=== PATIENT | female | born 1990 | race Caucasian/White ===

== ENCOUNTER 2019-07-08 19:18 | Outpatient (CLI) | payer MEDICAID | END 2019-07-08 19:19 | disposition short-term general hospital (02) | LOC: EMS 19:18 | PROVIDERS: ATTEND Surgery | DX: S01.01XA Laceration without foreign body of scalp, initial encounter (principal); V49.40XA Driver injured in collision with unspecified motor vehicles in traffic accident, initial encounter; Y92.410 Unspecified street and highway as the place of occurrence of the external cause | CPT/HCPCS: A0425; A0429; A0999 ==

== ENCOUNTER 2021-07-22 10:17 | Outpatient (CLI) | payer MEDICAID | END 2021-07-22 10:18 | disposition short-term general hospital (02) | LOC: EMS 10:17 | DX: M62.838 Other muscle spasm (principal); E23.2 Diabetes insipidus; U07.1 COVID-19 | CPT/HCPCS: A0425; A0429; A0999 ==

== ENCOUNTER 2021-07-23 03:48 | Outpatient (CLI) | payer MEDICAID | END 2021-07-23 03:49 | disposition short-term general hospital (02) | LOC: EMS 03:48 | DX: R07.89 Other chest pain (principal); R11.2 Nausea with vomiting, unspecified; R19.7 Diarrhea, unspecified; U07.1 COVID-19 | CPT/HCPCS: A0425; A0429; A0999 ==

== ENCOUNTER 2021-08-18 16:09 | Outpatient (CLI) | payer MEDICAID | END 2021-08-18 16:10 | disposition short-term general hospital (02) | LOC: EMS 16:09 | DX: R53.81 Other malaise (principal); R11.0 Nausea | CPT/HCPCS: A0425; A0427; A0999 ==

== ENCOUNTER 2022-08-08 12:25 | Emergency (ER) | payer MEDICAID ==
[2022-08-08 12:40] VITALS: BP 124/72
[2022-08-08] MEDS ORDERED: IBUPROFEN 800 MG TABLET PO STA (13:42)
[2022-08-08] MEDS ORDERED: oxyCODONE 5 MG TABLET PO STA (13:42)
[2022-08-08] MEDS ORDERED: PENICILLIN VK 250 MG TABLET PO STA (13:42)
--- NOTE | 2022-08-08 13:43 | ED Physician Documentation ---
PD HPI HEENT - Stated complaint Stated Complaint: FACIAL SWELLING - Chief complaint Chief Complaint: Heent - History obtained from History obtained from: Patient - Additional information Additional information: 32-year-old woman with history of fentanyl and methamphetamine abuse presents with her mother for the evaluation of facial swelling and a dental infection going on for about 2 days and generally worsening not associated with fevers or chills. Is been a long time since she saw a dentist but has an upcoming appointment. She is weaned herself off of Suboxone and is staying with her mother. Last use of fentanyl was approximately 3 weeks ago and last use of methamphetamines was approximately a week ago. 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 : None HEENT: None Psych: Depression, Anxiety Musculoskeletal: None Derm: None - Past Surgical History Past Surgical History: No /CAR SUPERVISOR: Tubal ligation - Present Medications Home Medications: Ambulatory Orders Medication Instructions Recorded Confirmed Fluconazole [Diflucan] 100 mg PO ONCE #1 tablet 02/27/16 Hydrocodone/Acetaminophen [[place] 1 each PO Q6H PRN #15 tablet 02/27/16 5-325 Tablet] Ibuprofen [Motrin] 600 mg PO TID #20 tab 02/27/16 metroNIDAZOLE [Flagyl] 500 mg PO BID #14 tablet 02/27/16 Ibuprofen [Motrin] 800 mg PO Q8H PRN #30 tablet 08/08/22 Oxycodone HCl/Acetaminophen 1 - 2 each PO Q6H PRN #14 tablet 08/08/22 [Percocet 5-325 mg Tablet] Penicillin V Potassium 500 mg PO Q6HR #40 tablet 08/08/22 - Allergies Allergies/Adverse Reactions: Allergies Allergy/AdvReac Type Severity Reaction Status Date / Time No Known Drug Allergies Allergy Verified 08/08/22 12:38 - Social History Does the pt smoke?: No Smoking Status: Never smoker Does the pt drink ETOH?: No Does the pt have substance abuse?: Yes - Immunizations Immunizations are current?: Yes - POLST Patient has POLST: No PD ED PE NORMAL - Vitals Vital signs reviewed: Yes - General General: Alert and oriented X 3, No acute distress - HEENT HEENT: Other (There is a large cavity in the left maxillary molar with overlying facial swelling but no palpable abscess on the buccal side at this juncture. No trismus.) - Neck Neck: Supple, no meningeal sign, No bony TTP - Neuro Neuro: Alert and oriented X 3, Normal speech - Psych Psych: Normal mood, Normal affect Results - Vitals Vitals: Vital Signs - 24 hr 08/08/22 12:35 Temperature 36.6 C Heart Rate 98 Respiratory 14 Rate Blood Pressure 124/72 O2 Saturation 99 Oxygen O2 Source Room air PD MEDICAL DECISION MAKING - ED course ED course: Discussed with her that she does not have a palpable abscess that we can drain at this juncture but she may progress to doing so and she should return if she feels more of a lump or worsens. Otherwise she will follow-up with a dentist as soon as possible. She is at high risk for substance abuse having had a history of same but needs something for pain and is here with mom and mom will hold the prescription for narcotics. Departure - Departure Disposition: 01 Home, Self Care Clinical Impression: Dental abscess Condition: Good Record reviewed to determine appropriate education?: Yes Instructions: ED Abscess Dental Prescriptions: Penicillin V Potassium 500 mg PO Q6HR #40 tablet Ibuprofen [Motrin] 800 mg PO Q8H PRN #30 tablet PRN Reason: PAIN &/OR FEVER Oxycodone HCl/Acetaminophen [Percocet 5-325 mg Tablet] 1 - 2 each PO Q6H PRN #14 tablet PRN Reason: pain Comments: As discussed, I sent your prescriptions electronically to [facility] in [place] is that these the only pharmacy that we know of that is currently open in the area. Mom should hold prescription for narcotics given history of substance issues. It is very important that you follow-up with a dentist. When it comes to dental problems like yours, the emergency department can only offer a short-term solution to your long-term problem. A couple of low cost options for dental care include: [facility] in [place], calls [phone] for an appointment Or [facility] in [place], call [phone] for an appointment. I am prescribing a short course of narcotic pain medication for you. These are potentially dangerous and addictive medications that should be used carefully. These medications may constipate you. Take an avig-zyp-ayfxfat stool softener (docusate) twice daily with plenty of water while taking these medications. If you go 24 hours without a bowel movement, take [id number] miralax, per package instructions. Do not drink or drive while taking these medications. If you received narcotic or sedating medications while in the emergency department, do not drive for 24 hours. Store this medication in a safe, secure place and out of reach of children. It is a violation of federal law to give or sell this medication to another person or to use in a manner other than prescribed. The ED will not refill narcotic prescriptions, including prescriptions lost or stolen. To dispose of unwanted medications: 1. [facility] at [address] in [place] has a medication drop box. They accept prescription medications (in pill form) Friday through Friday 9:00 a.m. to 5:00 p.m. 2. [facility] accepts prescription medications (in pill form only) for disposal year round. Call for more information. 3. Contact the [facility] for the next [facility] sponsored prescription drug collection event. , x7310, or x7310; Note that many narcotic pain relievers also contain Tylenol/acetaminophen. Ple ase ensure that your total dose of acetaminophen from all sources does not exceed 3 g (3000 mg) per day.
== END 2022-08-08 14:01 | disposition home or self-care (01) ==
LOC: ED 12:25
DX: K04.7 Periapical abscess without sinus (principal)
CPT/HCPCS: 99282; 99283; A9270

== ENCOUNTER 2023-05-26 14:43 | Emergency (ER) | payer MEDICAID ==
[2023-05-26 14:50] VITALS: BP 128/63; O2SAT 100
--- NOTE | 2023-05-26 16:47 | ED Physician Documentation ---
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: Tubal ligation - Present Medications Home Medications: Ambulatory Orders Medication Instructions Recorded Confirmed No Known Home Medications 05/26/23 05/26/23 - Allergies Allergies/Adverse Reactions: Allergies Allergy/AdvReac Type Severity Reaction Status Date / Time No Known Drug Allergies Allergy Verified 05/26/23 14:47 - Social History Does the pt smoke?: No Smoking Status: Never smoker Does the pt drink ETOH?: No Does the pt have substance abuse?: Yes - Immunizations Immunizations are current?: Yes - POLST Patient has POLST: No Results - Vitals Vitals: Vital Signs - 24 hr 05/26/23 14:44 Temperature 36.8 C Heart Rate 78 Respiratory 16 Rate Blood Pressure 128/63 O2 Saturation 100 Oxygen O2 Source Room air Departure - Departure
== END 2023-05-26 18:25 | disposition left against medical advice (07) ==
LOC: ED 14:43
DX: Z53.21 Procedure and treatment not carried out due to patient leaving prior to being seen by health care provider (principal)

== ENCOUNTER 2023-05-28 18:01 | Emergency (ER) | payer MEDICAID ==
[2023-05-28 18:07] VITALS: BP 140/75; O2SAT 99
--- NOTE | 2023-05-28 18:46 | ED Physician Documentation ---
History of Present Illness - Stated complaint Stated Complaint: MOUTH SWELLING - Chief complaint Chief Complaint: Heent - Additonal information Additional information: 33-year-old female presents emergency department for evaluation of 1 week pain at tooth #6. She does have a decayed tooth here and has been seen by [facility] with a plan to have the tooth removed and get partials/dentures. However she was referred to an outside dentist and is unsure when this will occur. She does smoke/vape daily. No fevers. No trismus. Tolerating her oral secretions. 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: No Does the pt have substance abuse?: Yes - Immunizations Immunizations are current?: Yes - POLST Patient has POLST: No PD ED PE NORMAL - General General: Alert and oriented X 3, No acute distress - HEENT HEENT: Pharynx benign, Other (Tooth #6 is decayed at the gumline without gumline swelling erythema or drainage. No trismus. Normal phonation and swallow.) - Neck Neck: Supple, no meningeal sign, No adenopathy - Cardiac Cardiac: RRR, No murmur - Respiratory Respiratory: Clear bilaterally Results - Vitals Vitals: Vital Signs - 24 hr 05/28/23 18:05 Temperature 37.0 C Heart Rate 72 Respiratory 16 Rate Blood Pressure 140/75 H O2 Saturation 99 Oxygen O2 Source Room air PD Medical Decision Making - ED course Complexity details: d/w patient ED course: 33-year-old female here with dentalgia tooth #6. This has been present now for about 1 week. The tooth is obviously decayed. There may be a apical tooth abscess. She will be started on Augmentin. Advised to follow closely with her dental clinic for longer-term plan and management as this tooth most certainly needs to be removed. Departure - Departure Disposition: 01 Home, Self Care Clinical Impression: Dentalgia Condition: Stable Record reviewed to determine appropriate education?: Yes Instructions: ED Tooth Pain Prescriptions: Amox/Clav 875/125 [Augmentin] 1 each PO Q12H #20 tablet Comments: You are here for tooth pain for about 1 week. You clearly have a decayed tooth that needs to be removed in the long-term in order to prevent reoccurrence of pain and infection. I sent a prescription for Augmentin to the [facility] in [place]. Please begin taking as directed. It can cause diarrhea so I also recommend that you take lactobacillus or eat yogurt daily while on this. Gargle with warm salt water 3 times a day. For pain take ibuprofen 600 mg with food 3 times a day or alternate with Tylenol. Return to the ER if you develop any significant or severe facial swelling, have inability to open your mouth or tolerate your oral secretions. In the long-term you most certainly need to continue follow-up with your dental clinics for longer-term plan and management
== END 2023-05-28 18:50 | disposition home or self-care (01) ==
LOC: ED 18:01
DX: K08.89 Other specified disorders of teeth and supporting structures (principal)
CPT/HCPCS: 99282; 99283